=== PATIENT | female | born 1980 | race Caucasian/White ===

== ENCOUNTER 2018-12-14 11:42 | Outpatient (CLI) | payer OTHER | END 2018-12-14 23:59 | disposition home or self-care (01) | LOC: CFH 11:42 | PROVIDERS: ATTEND Family Medicine | DX: J32.2 Chronic ethmoidal sinusitis (principal); M48.02 Spinal stenosis, cervical region; G44.52 New daily persistent headache (NDPH); M50.30 Other cervical disc degeneration, unspecified cervical region; R42 Dizziness and giddiness; J32.0 Chronic maxillary sinusitis; M43.22 Fusion of spine, cervical region | CPT/HCPCS: 70450; 72125 ==

== ENCOUNTER 2019-09-12 10:13 | Emergency (ER) | payer MEDICAID ==
[~2019-09-12] VITALS: Ht 160 cm; Wt 107.0 kg
--- NOTE | 2019-09-12 10:31 | NUR ---
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
[2019-09-12] MEDS ORDERED: LORazepam 1MG TABLET PO ONE (11:00)
[2019-09-12 11:25] LABS: BASOPHILS # (AUTO) 0.04 x10^3/uL (0-0.1); BASOPHILS % (AUTO) 0 % (0-1); EOSINOPHILS # (AUTO) 0.56 x10^3/uL (0-0.4); EOSINOPHILS % (AUTO) 5 % (1-7); LYMPHOCYTES # (AUTO) 2.79 x10^3/uL (1-3.4); LYMPHOCYTES % (AUTO) 25 % (22-44); MD NO; MEAN CORPUSCULAR HEMOGLOBIN 32.4 pg (27.0-34.8); MEAN CORPUSCULAR HGB CONC 33.5 g/dL (32.4-35.8); MEAN CORPUSCULAR VOLUME 96.6 fL (80-100); MEAN PLATELET VOLUME 8.1 fL (7.4-10.4); MONOCYTES # (AUTO) 0.67 x10^3/uL (0.2-0.8); MONOCYTES % (AUTO) 6 % (2-9); NEUTROPHILS # (AUTO) 7.17 x10^3/uL (1.8-6.8); NEUTROPHILS % (AUTO) 64 % (42-75); PLATELET COUNT 284 x10^3/uL (130-400); RED BLOOD COUNT 4.91 x10^6/uL (3.82-5.3); RED CELL DISTRIBUTION WIDTH 12.9 % (9.6-15.2)
[2019-09-12 11:37] LABS: ALBUMIN 3.9 g/dL (3.4-5.0); ANION GAP 9 mmol/L (5-15); CALCIUM 9.2 mg/dL (8.5-10.1); CHLORIDE 107 mmol/L (98-107); CREATININE 0.64 mg/dL (0.55-1.02); T4 (THYROXINE) 14.1 mcg/dL (4.8-13.9)
[2019-09-12] MEDS ORDERED: LORazepam 1MG TABLET ONE (12:27)
--- NOTE | 2019-09-12 12:30 | NUR ---
medicated per emar no changes in in exam with reassessment
[2019-09-12 12:43] VITALS: BP 151/100
== END 2019-09-12 13:43 | disposition home or self-care (01) ==
LOC: ED 12:50
DX: F41.1 Generalized anxiety disorder (principal); E11.9 Type 2 diabetes mellitus without complications; R51 Headache
CPT/HCPCS: 36415; 80048; 82040; 84436; 84443; 85025; 93005; 99284